=== PATIENT | female | born 1995 | race Caucasian/White ===

== ENCOUNTER 2021-05-25 03:25 | Emergency (ER) | payer SELFPAY ==
[~2021-05-25] VITALS: Ht 167.6 cm; Wt 70.0 kg
[2021-05-25 03:32] VITALS: BP 108/75
[2021-05-25] MEDS ORDERED: LIDOCAINE HCL/PF 1% 10 MG/ML 5ML VIAL INFIL ONE (03:45)
[2021-05-25] MEDS ORDERED: BACITRACIN ZINC OINT UDPKT TOP ONE (03:45)
[2021-05-25] MEDS ORDERED: LIDOCAINE HCL 1% 10 MG/ML 10ML VIAL IJ SCH (04:15)
== END 2021-05-25 04:33 | disposition left against medical advice (07) ==
LOC: ER 03:25
DX: S61.212A Laceration without foreign body of right middle finger without damage to nail, initial encounter (principal); X58.XXXA Exposure to other specified factors, initial encounter; Y93.89 Activity, other specified; Y92.89 Other specified places as the place of occurrence of the external cause; Y99.8 Other external cause status
CPT/HCPCS: 81025; 99282; J3490